=== PATIENT | female | born 2000 | race Caucasian/White ===

== ENCOUNTER 2020-11-24 03:52 | Emergency (ER) | payer OTHER ==
[~2020-11-24] VITALS: Ht 160 cm; Wt 59.0 kg
[2020-11-24] MEDS ORDERED: ONDANSETRON 2MG/ML, 2ML IVPush ONE (04:00)
[2020-11-24] MEDS ORDERED: OMNIPAQUE 350 MG/ML, 100ML BOTTLE ONE (04:00)
[2020-11-24] MEDS ORDERED: MORPHINE SULFATE 4 MG/ML, 1ML IVPush PRN (04:00)
[2020-11-24] MEDS ORDERED: ONDANSETRON 2MG/ML, 2ML ONE (04:11)
[2020-11-24] MEDS ORDERED: MORPHINE SULFATE 4 MG/ML, 1ML ONE ×2 (04:11→07:52)
[2020-11-24 04:23] LABS: BASOPHILS % (AUTO) 0 % (0-1); EOSINOPHILS % (AUTO) 1 % (1-7); LYMPHOCYTES % (AUTO) 16 % (22-44); MEAN CORPUSCULAR HEMOGLOBIN 29.9 pg (27.0-34.8); MEAN CORPUSCULAR HGB CONC 34.8 g/dL (32.4-35.8); MEAN PLATELET VOLUME 10.8 fL (7.4-10.4); MONOCYTES % (AUTO) 10 % (2-9); NEUTROPHILS % (AUTO) 73 % (42-75); PLATELET COUNT 210 x10^3/uL (130-400); RED BLOOD COUNT 4.45 x10^6/uL (3.82-5.3); RED CELL DISTRIBUTION WIDTH 13.1 % (9.6-15.2)
[2020-11-24 04:29] LABS: ALANINE AMINOTRANSFERASE 42 U/L (12-78); ALBUMIN 3.9 g/dL (3.4-5.0); ANION GAP 6 mmol/L (5-15); CALCIUM 8.7 mg/dL (8.5-10.1); CHLORIDE 109 mmol/L (98-107); CREATININE 0.71 mg/dL (0.55-1.02)
[2020-11-24] MEDS ORDERED: PLEASE ENTER ALLERGIES MC SCH (04:30)
[2020-11-24 04:31] LABS: MICROSCOPIC AUTO
[2020-11-24 04:34] LABS: ALKALINE PHOSPHATASE 71 U/L (45-117); BILIRUBIN,TOTAL 0.8 mg/dL (0.2-1.0); TOTAL PROTEIN 7.1 g/dL (6.4-8.2)
--- NOTE | 2020-11-24 06:54 | NUR ---
Report to Danielle VILLALOBOS
--- NOTE | 2020-11-24 06:56 | NUR ---
REPORT FROM EMANI, ASSUME CARE OF PT AT THIS TIME.
--- NOTE | 2020-11-24 07:03 | NUR ---
PT CONCERNED WITH WAIT FOR CT READ. CALL TO RAD TO INQUIRE ON DELAY.
[2020-11-24] MEDS ORDERED: MORPHINE SULFATE 4 MG/ML, 1ML IVPush ONE (07:30)
[2020-11-24 08:15] VITALS: BP 112/62
== END 2020-11-24 08:17 | disposition home or self-care (01) ==
LOC: ED 06:07
DX: N30.00 Acute cystitis without hematuria (principal); N83.291 Other ovarian cyst, right side; R11.2 Nausea with vomiting, unspecified
CPT/HCPCS: 36415; 71045; 74177; 80053; 81001; 83690; 84703; 85014; 85018; 85025; 87077; 87086; 96374; 96375; 96376; 99285; J2270; J2405; Q9967; 87186